=== PATIENT | male | born 1950 | race Hispanic/Latino ===

== ENCOUNTER → 2018-02-20 | Outpatient (CLI) | payer OTHER | END | disposition home or self-care (01) | LOC: RAH 15:09 | PROVIDERS: ATTEND Internal Medicine | DX: M17.12 Unilateral primary osteoarthritis, left knee (principal) | CPT/HCPCS: 73562 ==

== ENCOUNTER → 2018-10-30 | Outpatient (CLI) | payer OTHER | END | disposition home or self-care (01) | LOC: RAH 12:16 | PROVIDERS: ATTEND Internal Medicine | DX: I70.203 Unspecified atherosclerosis of native arteries of extremities, bilateral legs (principal) | CPT/HCPCS: 93925 ==

== ENCOUNTER → 2022-11-30 | Outpatient (CLI) | payer OTHER | END | disposition home or self-care (01) | LOC: RAH 15:21 | PROVIDERS: ATTEND Internal Medicine | DX: M25.552 Pain in left hip (principal); W19.XXXA Unspecified fall, initial encounter; Y93.89 Activity, other specified; Y92.89 Other specified places as the place of occurrence of the external cause; Y99.8 Other external cause status | CPT/HCPCS: 73502 ==

== ENCOUNTER → 2024-08-28 | Outpatient (CLI) | payer OTHER ==
--- NOTE | 2024-08-29 03:29 | HMCIMG ---
EXAM: CR Right Shoulder, 3 views. CLINICAL HISTORY: Pain. COMPARISON: None provided. FINDINGS: No acute fracture or aggressive appearing osseous lesion. Mild osteopenia. 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 Unremarkable glenohumeral joint. The soft tissues are unremarkable. IMPRESSION: No acute bony abnormality is evident. Mild osteopenia. 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 /[place]
== END | disposition home or self-care (01) ==
LOC: RAH 11:55
DX: M19.011 Primary osteoarthritis, right shoulder (principal); M85.88 Other specified disorders of bone density and structure, other site; M25.511 Pain in right shoulder
CPT/HCPCS: 73030